=== PATIENT | male | born 1945 | race Two or more races ===

== ENCOUNTER 2025-04-21 13:02 | Inpatient (IN) | payer OTHER, MEDICARE ==
[~2025-04-21] VITALS: Ht 188 cm; Wt 76.3 kg
[~2025-04-21 13:02] MED LIST: ATOR10TA PO
--- NOTE | 2025-04-21 16:52 | ED.PDOC ---
History of Present Illness HPI Comments 79 y/o M presents with c/c of left ear ringing x1 year. Patient reports on coming, today, due to no longer being able to tolerate sound. He denies any dizziness, lightheadedness, pain, or further acute symptoms. Chief Complaint: Earache Time Seen by MD: 16:45 Primary Care Provider: KIRK Painter Notes: Nurses Notes, Medications, Allergies Allergies: Coded Allergies: NO KNOWN ALLERGIES (Unverified , 03/30/20) Home Meds Reported Medications Atorvastatin Calcium (Lipitor) 10 Mg Tab, 1 TAB PO DAILY, #30 TAB 5 Refills 03/30/20 Information Source: Patient Mode of Arrival: Ambulatory Severity: Moderate Timing: Months Duration: Intermittent Prehospital treatment: None Past Medical History PAST MEDICAL HISTORY: Denies Surgical History: Denies all surgeries Social History Smoker: Non-Smoker Alcohol: Denies ETOH Use Drugs: Denies Drug Use Lives In: Home All Other Systems: Reviewed and Negative (Comprehensive review of systems are negative unless stated in HPI) Physical Exam Exam Comments pleasantly confused General Appearance: No Apparent Distress, Normal HEENT: Normal ENT Inspection, Pharynx Normal, TMs Normal Neck: Full Range of Motion, Non-Tender, Normal, Normal Inspection Respiratory: Chest Non-Tender, Lungs Clear, No Accessory Muscle Use, No Respiratory Distress, Normal Breath Sounds Cardiovascular: No Edema, No JVD, No Murmur, No Gallop, Normal Peripheral Puls es, Regular Rate/Rhythm Breast Exam: Deferred Gastrointestinal: No Organomegaly, Non Tender, No Pulsatile Mass, Normal Bowel Sounds, Soft Genitalia: Deferred Pelvic: Deferred Rectal: Deferred Extremities: No calf tenderness, Normal capillary refill, Normal inspection, Normal range of motion, Non-tender, No pedal edema Musculoskeletal : Apperance: Normal Neurologic: Alert, processor inspector II-XII nml as Tested, No Motor Deficits, Normal Affect, Normal Mood, No Sensory Deficits, Other (pleasantly confused) Cerebellar Function: Normal Reflexes: Normal Skin: Dry, Normal Color, Warm Lymphatic: No Adenopathy Was a procedure done? Was a procedure done?: No Differential Dx Considerations may include: tinnitus, otitis media, otits externa, among others X-Ray, Labs, Meds, VS Vital Signs Date Time Temp Pulse Resp B/P (MAP) Pulse Ox O2 Delivery O2 Flow Rate FiO2 04/21/25 17:40 97.6 69 18 116/69 (85) 98 97.6 04/21/25 13:04 97.8 68 18 93/59 94 97.8 Lab Test 04/21/25 17:18 Range/Units White Blood Count Pending Red Blood Count Pending Hemoglobin Pending Hematocrit Pending Mean Corpuscular Volume Pending Mean Corpuscular Hemoglobin Pending Mean Corpuscular Hemoglobin Concent Pending Red Cell Distribution Width Pending Platelet Count Pending Mean Platelet Volume Pending Neutrophils (%) (Auto) Pending Lymphocytes (%) (Auto) Pending Monocytes (%) (Auto) Pending Basophils (%) (Auto) Pending Neutrophils # (Auto) Pending Lymphocytes # (Auto) Pending Monocytes # (Auto) Pending Sodium Level Pending Potassium Level Pending Chloride Level Pending Carbon Dioxide Level Pending Anion Gap Pending Blood Urea Nitrogen Pending Creatinine Pending Glomerular Filtration Rate Calc Pending BUN/Creatinine Ratio Pending Serum Glucose Pending Calcium Level Pending Troponin I High Sensitivity Pending B-Type Natriuretic Peptide Pending Time of 1ST Reevaluation: 17:15 Reevaluation 1ST: Unchanged Patient Education/Counseling: Diagnosis, Treatment, Other (need for admission ) Family Education/Counseling: No Family Present SEPSIS Sepsis Screen Date sepsis recognized/suspect: Apr 21, 2025 Time Sepsis recognized/suspect: 1307 Recent Procedure: No On Antibiotic Therapy: No Respiratory Rate >20: No Heart Rate >90: No Temp<36 C (96.8 F) or >38.3 C: No SBP <90 or MAP <65 mmHG: No New Acute Mental Status Change: No Is the patient on CPAP, BIPAP,: No Physician Orders B-Type Natriuretic Peptide (04/21/25 16:47) Basic Metabolic Panel (04/21/25 16:47) Complete Blood Count (04/21/25 16:47) Troponin-I Hs (04/21/25 16:47) Urinalysis (04/21/25 16:47) Chest Portable (04/21/25 16:47) Head Without Contrast (04/21/25 16:47) Electrocardigram (04/21/25 16:47) Troponin-I Hs (04/21/25 17:47) Troponin-I Hs (04/21/25 19:47) Electrocardigram (04/21/25 17:47) Electrocardigram (04/21/25 19:47) Vital Signs Date Time Temp Pulse Resp B/P (MAP) Pulse Ox O2 Delivery O2 Flow Rate FiO2 04/21/25 17:40 97.6 69 18 116/69 (85) 98 97.6 04/21/25 13:04 97.8 68 18 93/59 94 97.8 Laboratory Tests Test 04/21/25 17:18 White Blood Count Pending Departure 1 Departure Time of Disposition: 18:03 (With a worsening confusion and altered mental status. Patient's CT scan, chest x-ray, blood work appears benign. We will admit patient for further workup) Impression: Primary Impression: Acute metabolic encephalopathy Additional Impression: Generalized weakness Disposition: ADMITTED INPATIENT Admit to: [facility] Condition: Guarded Critical Care Note Critical Care Time?: No Stability Stability form required: No Heart Score Heart Score: Heart Score Response (Comments) Value History N/A 0 EKG N/A 0 Age N/A 0 Risk Factors N/A 0 Troponin N/A 0 Total 0 I personally scribed for GEE ARNOLD MD ([email or web address]) on 04/21/25 at 16:52. Electronically submitted by Benson Castellanos ([email or web address]). GEE ARNOLD MD Apr 21, 2025 16:52
--- NOTE | 2025-04-21 17:34 | DVH ---
CHEST RADIOGRAPH Indication: ams Technique: Single frontal view of the chest was obtained Comparison: None FINDINGS: Lines and Tubes: None Lungs: Scarring or linear atelectasis right upper lobe no prior studies for comparison. Pleura: No effusion. No pneumothorax. Cardiomediastinal contours: Unremarkable Bones: No acute osseous abnormality. IMPRESSION: 1. Scarring or atelectasis right upper lobe. No prior studies for comparison.
--- NOTE | 2025-04-21 17:35 | DVH ---
EXAM: CT HEAD WITHOUT CONTRAST INDICATION: ams TECHNIQUE: CT of the head without intravenous contrast. Radiation Dose : 1. Head: CT Dose: CTDI volume is 52.12 mGy. Dose-length product is 988.23 mGy*cm The dose indicators for CT are the volume Computed Tomography (CT) Dose Index (CTDIvol) and the Dose Length Product (DLP), and are measured in units of mGy and mGy-cm, respectively. These indicators are not patient dose, but values generated from the CT scanner acquisition factors. The report includes radiation exposure data for exposures received during this examination. COMPARISON: None FINDINGS: Evaluation is degraded by motion artifact. No acute territorial infarct, intracranial hemorrhage, or mass effect. There are global involutional changes with compensatory prominence of the ventricles and sulci. Patchy periventricular and subcortical white matter hypoattenuation is nonspecific but may be related to small vessel ischemic disease. Small retro cerebellar right arachnoid cyst. The orbits are normal. There is mild mucosal thickening within the left maxillary antrum. The osseous structures are unremarkable. IMPRESSION: 1. No acute territorial infarct, intracranial hemorrhage, or mass effect. 2. Age-related involutional changes. Chronic microvascular changes. 3. If clinical symptoms persist, MRI may be beneficial in further evaluation. Radiation optimization: All CT scans at this facility use at least one of these dose optimization techniques: automated exposure control mA and/or kV adjustment per patient size (includes targeted exams where dose is matched to clinical indication) or iterative reconstruction.
[2025-04-21 17:38] LABS: Hematocrit 52.1 % (41.0-53.0); Hemoglobin 17.6 g/dL (13.5-17.5); Nucleated Red Blood Cells % 0.2 %
[2025-04-21 17:39] LABS: Mean Corpuscular Hemoglobin 30.4 pg (28.0-32.0); Mean Corpuscular Volume 90.1 fL (80.0-100.0)
[2025-04-21 17:43] LABS: Chloride 101 mmol/L (98-107); Potassium 4.7 mmol/L (3.5-5.1); Sodium 138 mmol/L (136-145)
[2025-04-21 17:44] LABS: Anion Gap 9 (5-15); Carbon Dioxide 28 mmol/L (20-31)
[2025-04-21 17:49] LABS: BUN/Creatinine Ratio 10.0 (10.0-20.0); Blood Urea Nitrogen 16 mg/dL (9-23); Glucose 83 mg/dL (74-106)
[2025-04-21 18:04] LABS: Calcium 10.9 mg/dL (8.7-10.4)
[2025-04-21 21:19] LABS: Urine Protein, UAD 1+ (Negative)
[2025-04-21] MEDS ORDERED: ONDANSETRON HCL 4 MG/2 ML VIAL IV PRN (22:30)
[2025-04-21] MEDS ORDERED: HYDROcodone-ACET 5/325MG TAB PO PRN (22:30)
[2025-04-21] MEDS ORDERED: ACETAMINOPHEN 325 MG TAB PO PRN (22:30)
[2025-04-21] MEDS ORDERED: DOCUSATE SOD 100 MG CAP PO PRN (22:30)
--- NOTE | 2025-04-21 23:56 | DVHHP2 ---
History of Present Illness Reason for Visit: Generalized weakness History of Present Illness The patient is a 79-year-old male who denies past medical history presented to [facility] ED with complaint of left ear ringing for the past 1 year. Patient reports that symptoms progressively get worse, no longer unable to tolerate sound prompting this visit. Patient was seen and evaluated in the ED, laboratory data shows WBC 8.0, platelets 209, sodium 138, potassium 4.7, BUN 16, creatinine 1.60, GFR 44, glucose 83, calcium 10.9, troponin 24, BNP 271.08, blood pressure 122/78, heart rate 65, temperature 97.6 F, O2 saturation 98% on room air. Head CT showed no acute territorial infarct, intracranial hemorrhage, or mass effect; age-related involutional changes, chronic microvascular changes. Please see medication orders section in the computer. On my assessment, patient denied chest pain, no headache, dizziness, diaphoresis, shortness of breaths, no diarrhea, nausea, vomiting, fever, no chills. Patient was admitted for further evaluation and medical management. Past Medical History Denies past medical history Past Surgical History Denies all surgeries Family History Reviewed, noncontributory to the management of this case. Past Social History The patient lives at home, denies smoking, alcohol or illicit drugs abuse. Review of Systems Constitutional: Yes: Weakness; No: Fever, Chills, Sweats, Malaise, Other Eyes: No: Pain, Vision change, Conjunctivae inflammation, Eyelid inflammation, Other, Redness ENT: Other (Left ear ringing); No: Ear pain, Ear discharge, Nose pain, Nose discharge, Nose congestion, Mouth pain, Mouth swelling, Throat pain, Throat swelling Respiratory: No: Cough, Dry, Shortness of breath, SOB with excertion, Wheezing, Hemoptysis, Pleuritic Pain, Sputum, Wheezing, Other Cardiovascular: No: Chest Pain, Palpitations, Orthopnea, Paroxysmal Noc. Dyspnea, Edema, Lt Headedness, Other Gastrointestinal: No: Nausea, Vomiting, Abdominal Pain, Diarrhea, Constipation, Melena, Hematochezia, Other Genitourinary: No Dysuria, No Frequency, No Incontinence, No Hematuria, No Retention, No Other Musculoskeletal: No: other, neck pain, shoulder pain, arm pain, back pain, hand pain, leg pain, foot pain Skin: No: Rash, Lesions, Jaundice, Bruising, Other Neurological: No: Weakness, Numbness, Incoordination, Change in speech, Confusion, Seizures, Other Allergies: Coded Allergies: NO KNOWN ALLERGIES (Unverified , 03/30/20) Medications Current Medications Medications Dose Ordered Sig/Loli Route Start Time Stop Time Status Last Admin Dose Admin Sodium Chloride 1,000 ml @ 60 mls/hr [id number] IV 04/21/25 22:30 Acetaminophen/ Hydrocodone Bitart 1 tab Q4HP PRN PO 04/21/25 22:30 Ondansetron HCl 4 mg Q4HP PRN IV 04/21/25 22:30 Docusate Sodium 100 mg BIDPRN PRN PO 04/21/25 22:30 Acetaminophen 650 mg Q6HP PRN PO 04/21/25 22:30 Exam Vital Signs Vital Signs Date Time Temp Pulse Resp B/P (MAP) Pulse Ox O2 Delivery O2 Flow Rate FiO2 04/21/25 20:36 97.6 65 18 122/78 (93) 98 97.6 General Appearance: Alert, Oriented X3, Cooperative, No acute distress HEENT: Atraumatic, PERRLA, EOMI, Mucous membr. moist/pink Respiratory: Normal air movement Cardiovascular: Regular rate, Normal S1, Normal S2, No murmurs Abdominal: Normal bowel sounds, Soft, No tenderness, No hepatospenomegaly, No masses Extremities: No clubbing, No cyanosis, No edema, Normal pulses, No tenderness/swelling Skin: No rashes, No significant lesion Neuro: Normal speech, Normal tone, Sensation intact, Cranial nerves 3-12 NL, Reflexes 2+, Other (Generalized weakness) Psych/Mental Status: Mental status NL, Mood NL Labs/Xrays Labs Test 04/21/25 19:45 04/21/25 18:16 04/21/25 17:18 Range/Units Urine Color Yellow Yellow Urine Clarity Clear Clear Urine pH 5.5 5.0-9.0 Urine Specific [place] 1.024 1.001-1.035 Urine Protein 1+ H Negative Urine Ketones Negative Negative Urine Blood Negative Negative /uL Urine Nitrite Negative Negative Urine Bilirubin Negative Negative Urine Urobilinogen 2 H Negative mg/dL Urine Leukocyte Esterase Negative Negative /uL Urine RBC 2 0 - 3 /hpf Urine Microscopic WBC 1 0-3 /HPF Urine Squamous Epithelial Cells Few <5 /hpf Urine Bacteria None seen None Seen /hpf Urine Hyaline Casts Mod 0 - 2 /lpf Urine Mucus Few None Seen Urine Glucose Normal Normal mg/dL Troponin I High Sensitivity 21 </=54 ng/L White Blood Count 8.0 4.4-10.8 10^3/uL Red Blood Count 5.78 4.5-5.90 10^6/uL Hemoglobin 17.6 H 13.5-17.5 g/dL Hematocrit 52.1 41.0-53.0 % Mean Corpuscular Volume 90.1 80.0-100.0 fL Mean Corpuscular Hemoglobin 30.4 28.0-32.0 pg Mean Corpuscular Hemoglobin Concent 33.7 32.0-36.0 g/dL Red Cell Distribution Width 13.4 11.8-14.3 % Platelet Count 209 140-450 10^3/uL Mean Platelet Volume 8.3 6.9-10.8 fL Neutrophils (%) (Auto) 63.2 37.0-80.0 % Lymphocytes (%) (Auto) 20.2 10.0-50.0 % Monocytes (%) (Auto) 8.5 0.0-12.0 % Eosinophils (%) (Auto) 7.2 H 0.0-7.0 % Basophils (%) (Auto) 0.9 0.0-2.0 % Neutrophils # (Auto) 5.0 1.6-8.6 10 ^3/uL Lymphocytes # (Auto) 1.6 0.4-5.4 10 ^3/uL Monocytes # (Auto) 0.7 0-1.3 10 ^3/uL Eosinophils # (Auto) 0.6 0-0.8 10 ^3/uL Basophils # (Auto) 0.1 0-0.2 10 ^3/uL Nucleated Red Blood Cells 0.2 % Sodium Level 138 136-145 mmol/L Potassium Level 4.7 3.5-5.1 mmol/L Chloride Level 101 98-107 mmol/L Carbon Dioxide Level 28 20-31 mmol/L Anion Gap 9 5-15 Blood Urea Nitrogen 16 9-23 mg/dL Creatinine 1.60 H 0.700-1.30 mg/dL Glomerular Filtration Rate Calc 44 >90 mL/min BUN/Creatinine Ratio 10.0 10.0-20.0 Serum Glucose 83 74-106 mg/dL Calcium Level 10.9 H 8.7-10.4 mg/dL B-Type Natriuretic Peptide 271.08 0-100 pg/mL PATIENT: GURDEEP STREETER ACCT: [id number] UNIT: [id number] : 1945 LOC: ER ROOM / BED: / AGE / SEX: 79 / M ADM STATUS: REG ER SERVICE 1647 ORDERING PHYSICIAN: GEE ARNOLD MD PROCEDURE(s): HWOCT - HEAD WITHOUT CONTRAST REASON: [facility] ORDER NUMBER(s): [id number], ACCESSION NUMBER(s): [id number] EXAM: CT HEAD WITHOUT CONTRAST INDICATION: ams TECHNIQUE: CT of the head without intravenous contrast. Radiation Dose : 1. Head: CT Dose: CTDI volume is 52.12 mGy. Dose-length product is 988.23 mGy*cm The dose indicators for CT are the volume Computed Tomography (CT) Dose Index (CTDIvol) and the Dose Length Product (DLP), and are measured in units of mGy and mGy-cm, respectively. These indicators are not patient dose, but values gene rated from the CT scanner acquisition factors. The report includes radiation exposure data for exposures received during this examination. COMPARISON: None FINDINGS: Evaluation is degraded by motion artifact. No acute territorial infarct, intracranial hemorrhage, or mass effect. There are global involutional changes with compensatory prominence of the ventricles and sulci. Patchy periventricular and subcortical white matter hypoattenuation is nonspecific but may be related to small vessel ischemic disease. Small retro cerebellar right arachnoid cyst. The orbits are normal. There is mild mucosal thickening within the left maxill shwetha antrum. The osseous structures are unremarkable. IMPRESSION: 1. No acute territorial infarct, intracranial hemorrhage, or mass effect. 2. Age-related involutional changes. Chronic microvascular changes. 3. If clinical symptoms persist, MRI may be beneficial in further evaluation. ORDERING PHYSICIAN: GEE ARNOLD MD PROCEDURE(s): CXRP - CHEST PORTABLE REASON: [facility] ORDER NUMBER(s): [id number], ACCESSION NUMBER(s): [id number] CHEST RADIOGRAPH Indication: ams Technique: Single frontal view of the chest was obtained Comparison: None FINDINGS: Lines and Tubes: None Lungs: Scarring or linear atelectasis right upper lobe no prior studies for comparison. Pleura: No effusion. No pneumothorax. Cardiomediastinal contours: Unremarkable Bones: No acute osseous abnormality. IMPRESSION: 1. Scarring or atelectasis right upper lobe. No prior studies for comparison. SEPSIS Sepsis Screen Date sepsis recognized/suspect: Apr 21, 2025 Time Sepsis recognized/suspect: 1307 Recent Procedure: No On Antibiotic Therapy: No Respiratory Rate >20: No Heart Rate >90: No Temp<36 C (96.8 F) or >38.3 C: No SBP <90 or MAP <65 mmHG: No New Acute Mental Status Change: No Is the patient on CPAP, BIPAP,: No Physician Orders Chest Portable (04/21/25 16:47) Head Without Contrast (04/21/25 16:47) Electrocardigram (04/21/25 16:47) Electrocardigram (04/21/25 17:47) Electrocardigram (04/21/25 19:47) Allergies (04/21/25 22:25) Code Status (04/21/25 22:25) Sodium Chloride 0.9% (04/21/25 22:30) Oxygen Per Hour (04/21/25 22:25) Hydrocodone-Acet 5/325mg Tab ([place] 5/32 (04/21/25 22:30) Ondansetron Hcl (Zofran) (04/21/25 22:30) Docusate Sodium Capsule (Colace Capsule) (04/21/25 22:30) Fall Risk Precautions In Place QSHIFT (04/21/25 22:25) Complete Blood Count (04/22/25 04:00) Comprehensive Metabolic Panel (04/22/25 04:00) Cardiac Diet-2gna,Lofat,Lochol (04/22/25 Breakfast) Condition: Serious (04/21/25 22:25) Acetaminophen Tablet (Tylenol Tablet) (04/21/25 22:30) Maintain Bed Rest (04/21/25 22:25) Sequential Compression Device (04/21/25 ) Vital Signs Date Time Temp Pulse Resp B/P (MAP) Pulse Ox O2 Delivery O2 Flow Rate FiO2 04/21/25 20:36 97.6 65 18 122/78 (93) 98 97.6 04/21/25 17:40 97.6 69 18 116/69 (85) 98 97.6 Laboratory Tests Test 04/21/25 17:18 White Blood Count 8.0 10^3/uL (4.4-10.8) Assessment/Plan Assessment/Plan Generalized weakness Acute renal injury Acute metabolic encephalopathy Plan 1. Admit to med surge unit 2. Breathing treatment 3. Pain control management 4. Management of fluids and electrolytes 5. Consultation for hospitalist 6. Diagnostic tests head CT 7. DVT prophylaxis-on SCDs 8. Repeat labs CBC, CMP in a.m. 9. Continue with current medical management 10. Treatment plan discussed with patient and RN. Patient verbalized understanding. Plan discussed with: Patient, Other (RN) My Orders Orders - LAXMI SUNSHINE DNP Procedure Category Date Status Time Allergies KEYANA 04/21/25 In Process 22:25 Code Status CODE 04/21/25 Transmitted 22:25 Sodium Chloride 0.9% PHA 04/21/25 In Process 22:30 Oxygen Per Hour RT 04/21/25 Transmitted 22:25 Hydrocodone-Acet PHA 04/21/25 In Process 5/325mg Tab ([place] 22:30 Ondansetron Hcl PHA 04/21/25 In Process (Zofran) 22:30 Docusate Sodium PHA 04/21/25 In Process Capsule (Colace 22:30 Fall Risk Precautions KEYANA 04/21/[address] 22:25 Complete Blood Count LAB 04/22/25 Verified 04:00 Comprehensive LAB 04/22/25 Verified Metabolic Panel 04:00 Cardiac DIET 04/22/25 Transmitted Diet-2gna,Lofat,Lochol Breakfast Condition: Serious KEYANA 04/21/25 In Process 22:25 Acetaminophen Tablet PHA 04/21/25 In Process (Tylenol Tablet) 22:30 Maintain Bed Rest KEYANA 04/21/25 In Process 22:25 Sequential KEYANA 04/21/25 In Process Compression Device Problem List: (1) Generalized weakness (2) Acute renal injury (3) Acute metabolic encephalopathy Date of Service: Apr 21, 2025 Billing Provider: LAXMI SUNSHINE DNP Common Visit Codes: [id number] INP/OBS CARE (HIGH) LAXMI SUNSHINE DNP Apr 21, 2025 23:56
[2025-04-22] VITALS (7 sets, daily range): BP systolic 90–114; BP diastolic 59–78; PULSE 55–117; RESP 13–95; TEMP 97.5–99; O2SAT 95–99
[2025-04-22] MEDS ORDERED: MORPHINE SULFATE INJ 2 MG/ml SYRG IV PRN
[2025-04-22] MEDS ORDERED: NITROGLYCERIN 0.4 MG SL TAB SL PRN
[2025-04-22 03:03] LABS: Hematocrit 47.6 % (41.0-53.0); Hemoglobin 16.0 g/dL (13.5-17.5); Mean Corpuscular Hemoglobin 30.1 pg (28.0-32.0); Mean Corpuscular Volume 89.7 fL (80.0-100.0); Nucleated Red Blood Cells % 0.2 %
[2025-04-22 03:19] LABS: Alanine Aminotransferase 15 U/L (7-40); Albumin 4.2 g/dL (3.2-4.8); Alkaline Phosphatase 143 U/L (46-116); Anion Gap 12 (5-15); BUN/Creatinine Ratio 13.6 (10.0-20.0); Bilirubin, Total 1.0 mg/dL (0.2-1.0); Blood Urea Nitrogen 21 mg/dL (9-23); Calcium 9.8 mg/dL (8.7-10.4); Carbon Dioxide 24 mmol/L (20-31); Chloride 101 mmol/L (98-107); Glucose 84 mg/dL (74-106); Potassium 4.6 mmol/L (3.5-5.1); Sodium 137 mmol/L (136-145); Total Protein 7.0 g/dL (5.7-8.2)
[2025-04-22] MEDS: SODIUM CHLORIDE 0.9% 1,000 ML IV SCH ×2 (11:35→13:45)
--- NOTE | 2025-04-22 13:05 | DVHPN2 ---
Changes from previous H/P or p: No Changes Eyes: No Pain, No Vision change, No Conjunctivae inflammation, No Eyelid inflammation, No Other, No Redness ENT: No Ear pain, No Ear discharge, No Nose pain, No Nose discharge, No Nose congestion, No Mouth pain, No Mouth swelling, No Throat pain, No Throat swelling; Other (Left ear ringing) Cardiovascular: No Chest Pain, No Palpitations, No Orthopnea, No Paroxysmal Noc. Dyspnea, No Edema, No Lt Headedness, No Other Respiratory: No Cough, No Dry, No Shortness of breath, No SOB with excertion, No Wheezing, No Hemoptysis, No Pleuritic Pain, No Sputum, No Other Gastrointestinal: No Nausea, No Vomiting, No Abdominal Pain, No Diarrhea, No Constipation, No Melena, No Hematochezia, No Other Genitourinary: No Dysuria, No Frequency, No Incontinence, No Hematuria, No Retention, No Other Musculoskeletal: No other, No neck pain, No shoulder pain, No arm pain, No back pain, No hand pain, No leg pain, No foot pain Skin: No Rash, No Lesions, No Jaundice, No Bruising, No Other Objective Vitals Vital Signs Date Time Temp Pulse Resp B/P (MAP) Pulse Ox O2 Delivery O2 Flow Rate FiO2 04/22/25 10:00 129 19 104/59 (74) 97 04/22/25 08:00 97.9 97.9 04/22/25 08:00 Room Air* 0 21 Intake/Output Intake and Output 04/22/25 07:00 Intake Total 100 ml Balance 100 ml Intake Oral 100 ml Medications Current Medications Medications Dose Ordered Sig/Loli Route Start Time Stop Time Status Last Admin Dose Admin Sodium Chloride 1,000 ml @ 60 mls/hr [id number] IV 04/21/25 22:30 04/22/25 11:35 60 MLS/HR Acetaminophen/ Hydrocodone Bitart 1 tab Q4HP PRN PO 04/21/25 22:30 Ondansetron HCl 4 mg Q4HP PRN IV 04/21/25 22:30 Docusate Sodium 100 mg BIDPRN PRN PO 04/21/25 22:30 Acetaminophen 650 mg Q6HP PRN PO 04/21/25 22:30 Nitroglycerin 0.4 mg Q5MINP PRN SL 04/22/25 00:00 Morphine Sulfate 2 mg Q30M PRN IV 04/22/25 00:00 Laboratory Results Laboratory Tests 04/22/25 02:40 Chemistry Test 04/21/25 17:18 04/22/25 02:40 Calcium Level 10.9 mg/dL (8.7-10.4) H 9.8 mg/dL (8.7-10.4) Albumin 4.2 g/dL (3.2-4.8) Total Protein 7.0 g/dL (5.7-8.2) Cardiac Markers Test 04/21/25 17:18 B-Type Natriuretic Peptide 271.08 pg/mL (0-100) LFT Test 04/22/25 02:40 Alanine Aminotransferase (ALT) 15 U/L (7-40) Alkaline Phosphatase 143 U/L (46-116) H Aspartate Amino Transferase (AST) 27 U/L (13-40) Total Bilirubin 1.0 mg/dL (0.2-1.0) Urinalysis Test 04/21/25 19:45 Urine Color Yellow (Yellow) Urine Clarity Clear (Clear) Urine pH 5.5 (5.0-9.0) Urine Specific [place] 1.024 (1.001-1.035) Urine Protein 1+ (Negative) H Urine Ketones Negative (Negative) Urine Blood Negative /uL (Negative) Urine Nitrite Negative (Negative) Urine Bilirubin Negative (Negative) Urine Urobilinogen 2 mg/dL (Negative) H Urine Leukocyte Esterase Negative /uL (Negative) Urine RBC 2 /hpf (0 - 3) Urine Microscopic WBC 1 /HPF (0-3) Urine Squamous Epithelial Cells Few /hpf (<5) Urine Bacteria None seen /hpf (None Seen) Urine Hyaline Casts Mod /lpf (0 - 2) Urine Mucus Few (None Seen) Urine Glucose Normal mg/dL (Normal) Labs and/or images reviewed: Labs reviewed by me, Image(s) reviewed by me Assessment/Plan Assessment/Plan Acute Generalized weakness Acute kidney injury Ringing in the left ear for 1 year: CT head negative: Outpatient follow up with the ENT Acute metabolic encephalopathy Time spent 46 minutes Advanced care planning time 20 minutes Patient is full code Plan discussed with: Patient Date of Service: Apr 22, 2025 Billing Provider: TATIANNA FLANNERY MD Common Visit Codes: [id number] INP/OBS CARE(HIGH) TATIANNA FLANNERY MD Apr 22, 2025 13:05
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
[2025-04-22] MEDS ORDERED: LORazepam 2MG/ML-1ML VIAL IV PRN (22:45)
[2025-04-22 23:17] LABS: Amphetamine Screen, Urine Neg (NEGATIVE); Barbiturate Scree,Urine Neg (NEGATIVE); Benzodiazephine Screen, Urine Neg (NEGATIVE); Cannabinoid Screen, Urine Neg (NEGATIVE); Cocaine Screen, Urine Neg (NEGATIVE); Opiate Scree,Urine Neg (NEGATIVE); Phencyclidine Screen, Urine Neg (NEGATIVE)
[2025-04-23] VITALS (8 sets, daily range): BP systolic 85–124; BP diastolic 43–81; PULSE 54–107; RESP 16–18; TEMP 97.5–98; O2SAT 93–100
[2025-04-23 05:35] LABS: Free T4 (Free Thyroxine) 1.32 ng/dL (0.89-1.76)
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
[2025-04-24] VITALS (8 sets, daily range): BP systolic 114–155; BP diastolic 58–99; PULSE 55–84; RESP 17–19; TEMP 97.7–98.7; O2SAT 94–98
--- NOTE | 2025-04-24 10:50 | DVH ---
CLINICAL HISTORY: Memory loss TECHNIQUE: Routine multiplanar imaging of the brain was performed without gadolinium contrast. COMPARISON: CT HEAD WITHOUT CONTRAST on DOS: 04/21/25 FINDINGS: There is no abnormal restricted diffusion to suggest acute infarction. There is mild brain volume loss. Scattered T2 hyperintense foci within the white matter both cerebral hemispheres is most compatible with a minimal burden of nonspecific chronic small vessel ischemic change. There is no evidence for acute ischemic changes, or mass. Is a 3.8 cm right paramedian posterior retro cerebellar arachnoid cyst. There is no hydrocephalus or midline shift. The cerebral sulci and subarachnoid cisterns are not effaced. The imaged paranasal sinuses demonstrate minimal scattered mucoperiosteal thickening. The globes are intact. The midline structures, including the corpus callosum, are unremarkable. The intracranial flow voids are maintained. IMPRESSION: No acute intracranial abnormality seen. No evidence for acute infarct. Mild brain volume loss. Minimal chronic small vessel ischemic change.
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
[2025-04-24] MEDS: CALCIUM CARB 500 MG CHEW TAB PO ONE (22:52)
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
[2025-04-25 01:00] VITALS: BP 116/66; PULSE 59; RESP 17; TEMP 97.9; O2SAT 95
[2025-04-25 05:00] VITALS: BP 109/68; PULSE 46; RESP 17; TEMP 97.7; O2SAT 98
[2025-04-25 08:00] VITALS: PULSE 56; RESP 14; O2SAT 95
[2025-04-25 08:49] VITALS: BP 116/75; PULSE 56; RESP 14; TEMP 98.6; O2SAT 95
[2025-04-25 13:00] VITALS: BP 116/68; PULSE 62; RESP 15; TEMP 98.6; O2SAT 99
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
[2025-04-25 16:46] VITALS: BP 109/71; PULSE 52; RESP 14; TEMP 98.4; O2SAT 96
== END 2025-04-25 17:00 | DRG 682 ==
LOC: ER 13:02 → OVERFLOW 23:54 → WEST WING 04-22 16:33
PROVIDERS: ADMIT Family Medicine; ATTEND Family Medicine
DX: N17.0 Acute kidney failure with tubular necrosis (principal); G93.41 Metabolic encephalopathy; G30.9 Alzheimer's disease, unspecified; Z59.02 Unsheltered homelessness; H93.12 Tinnitus, left ear; R29.6 Repeated falls; F02.80 Dementia in other diseases classified elsewhere, unspecified severity, without behavioral disturbance, psychotic disturbance, mood disturbance, and anxiety; F17.200 Nicotine dependence, unspecified, uncomplicated; Z86.718 Personal history of other venous thrombosis and embolism; Z82.49 Family history of ischemic heart disease and other diseases of the circulatory system; Z82.3 Family history of stroke; Z79.899 Other long term (current) drug therapy
CPT/HCPCS: 36415; 70450; 70551; 71045; 72100; 74018; 80048; 80053; 80307; 81001; 82607; 82746; 83880; 84439; 84443; 84484; 85025; 97162; G0378